=== PATIENT | female | born 1950 | race Caucasian/White ===

== ENCOUNTER 2018-11-01 04:57 | Emergency (ER) | payer MEDICARE, MEDICAID ==
[~2018-11-01] VITALS: Ht 160 cm; Wt 89.8 kg
--- NOTE | 2018-11-01 05:00 | NUR ---
ASMITA FROM HOME C/O MIDEPIGASTRIC PAIN X40 DAYS, PROGRESSIVELY GETTING WORSE. ALSO C/O CP RADIATING TO BACK AND NAUSEA. PT AAOX4. RESPIRATIONS EVEN AND UNLABORED. SKIN WARM AND INTACT. HYPERTENSION NOTED, MD AWARE. PLACED ON CONTINUOUS METAL BONDING CRIB ATTENDANT, WILL CONTINUE TO MONITOR
--- NOTE | 2018-11-01 05:05 | NUR ---
MD AT BEDSIDE FOR EVALUATION
--- NOTE | 2018-11-01 05:15 | NUR ---
IV INITIATED R AC 18G. LABS DRAWN FROM SITE. AGRICULTURAL ENGINEERING TEACHER AT BEDSIDE FOR COLLECTION. IV INTACT AND PATENT, PLACED ON SALINE LOCK
[2018-11-01 05:24] LABS: BASOPHILS % (AUTO) 0.4 % (0.0-2.0); EOSINOPHILS % (AUTO) 3.3 % (0.0-6.0); HEMATOCRIT 42 % (33-45); HEMOGLOBIN 14.1 g/dL (11.5-14.8); LYMPHOCYTES # (AUTO) 2.9 /CMM (0.8-4.8); LYMPHOCYTES % (AUTO) 30.8 % (20.0-44.0); MEAN CORPUSCULAR HGB CONC 33 g/dl (31.0-36.0); MEAN CORPUSCULAR VOLUME 84 fL (82-100); MONOCYTES # (AUTO) 0.7 /CMM (0.1-1.30); MONOCYTES % (AUTO) 7.6 % (2.0-12.0); NEUTROPHILS # (AUTO) 5.4 /CMM (1.8-8.9); NEUTROPHILS % (AUTO) 57.9 % (43.0-81.0); PLATELET COUNT (AUTO) 252 /CMM (150-450); RED BLOOD CELL COUNT(AUTO) 5.01 MIL/uL (4.0-5.2); WHITE BLOOD COUNT (AUTO) 9.3 K/uL (4.3-11.0)
[2018-11-01 05:33] LABS: CALCIUM, SERUM 9.8 mg/dL (8.5-10.1); CARBON DIOXIDE 29 mmol/L (21-32); CHLORIDE 103 mmol/L (98-107); CREATININE 0.8 mg/dL (0.6-1.3); GLUCOSE 128 mg/dL (74-106); POTASSIUM 3.8 mmol/L (3.5-5.1); SODIUM SERUM 141 mmol/L (136-145); UREA NITROGEN, BLOOD 18 mg/dL (7-18)
[2018-11-01 05:39] LABS: ALANINE AMINOTRANSFERASE 21 U/L (12-78); ALBUMIN 3.8 g/dL (3.4-5.0); ALKALINE PHOSPHATASE 55 U/L (46-116); ASPARTATE AMINOTRANSFERASE 11 U/L (15-37); BILIRUBIN,DIRECT 0.1 mg/dL (0.0-0.2); BILIRUBIN,TOTAL 0.3 mg/dL (0.2-1.0); LIPASE 112 U/L (73-393); TOTAL PROTEIN, SERUM 7.9 g/dL (6.4-8.2)
[2018-11-01] MEDS ORDERED: IOHEXOL-300 100 ML VIAL IV ONE (05:48)
--- NOTE | 2018-11-01 05:57 | NUR ---
BROUGHT BY RADIOLOGY FOR CT
--- NOTE | 2018-11-01 07:10 | NUR ---
GAVE REPORT TO YOVANY MEDINA FOR JOCELYN
--- NOTE | 2018-11-01 08:41 | NUR ---
PIV REMOVED, PATIENT A/OX4, BREATHING EVEN AND UNLABORED, NO SOB NOTED, NO DISTRESS NOTED. DENIES ABDOMINAL PAIN AT THIS TIME. DAUGHTER AT BEDSIDE. DISCHARGE INSTRUCTION GIVEN AND PATIENT VERBALIZED UNDERSTANDING. WAITING FOR FAMILY FOR NEURODIAGNOSTIC TECHNOLOGIST.
--- NOTE | 2018-11-01 09:16 | NUR ---
PATIENT LEFT IN STABLE CONDITION.
[2018-11-01 09:17] VITALS: BP 141/69
== END 2018-11-01 09:17 | disposition home or self-care (01) ==
LOC: ER 05:00
DX: R10.13 Epigastric pain (principal); I10 Essential (primary) hypertension; R00.1 Bradycardia, unspecified
CPT/HCPCS: 36415; 74177; 80048; 80076; 83690; 84484; 85025; 93005; 99284; Q9967